=== PATIENT | male | born 1990 | race African-American/Black ===

== ENCOUNTER 2017-12-30 18:43 | Emergency (ER) | payer OTHER ==
[2017-12-30] MEDS: IBUPROFEN 600 MG TAB PO (19:35)
== END 2017-12-30 20:23 | disposition home or self-care (01) ==
LOC: M ED 18:43
DX: S50.11XA Contusion of right forearm, initial encounter (principal); V03.10XA Pedestrian on foot injured in collision with car, pick-up truck or van in traffic accident, initial encounter; Y92.481 Parking lot as the place of occurrence of the external cause
CPT/HCPCS: 73090